=== PATIENT | female | born 1970 | race Caucasian/White ===

== ENCOUNTER → 2019-05-12 | Day surgery (SDC) | payer OTHER ==
[~2019-05-12] VITALS: Ht 154.9 cm; Wt 69.4 kg
[2019-05-12 08:25] VITALS: BP 147/92
[2019-05-12 18:09] VITALS: BP 131/90
== END | disposition home or self-care (01) ==
LOC: DS 08:03 → MA 09:00
DX: C50.411 Malignant neoplasm of upper-outer quadrant of right female breast (principal); Z92.21 Personal history of antineoplastic chemotherapy; Z98.890 Other specified postprocedural states
CPT/HCPCS: 76642; 88344; J0690; J1170; J2001; J2250; J2405; J2704; J3010; J3490; J7030; J7120; Q9968